=== PATIENT | female | born 1950 | race Caucasian/White ===

== ENCOUNTER 2019-09-12 13:10 | Emergency (ER) | payer BC, MEDICARE ==
[~2019-09-12] VITALS: Ht 162.6 cm; Wt 71.4 kg
[2019-09-12 13:12] VITALS: BP 139/76
[2019-09-12] MEDS ORDERED: RABIES VACCINE /PF 2.5 UNITS IM-VACC ONE (14:00)
[2019-09-12] MEDS ORDERED: CLINDAMYCIN PMX 600MG/50ML 50 ML IV ONE (14:00)
[2019-09-12] MEDS ORDERED: RABIES IMMUNE GLOBULIN/PF 150 UNITS/ML, 2ML IM ONE (14:00)
--- NOTE | 2019-09-12 14:00 | NUR ---
2 SUTURES REMOVED FROM LEFT THUMB W/OUT DIFFICULTY
[2019-09-12] MEDS ORDERED: KETOROLAC 30 MG/1 ML ONE (14:13)
[2019-09-12] MEDS ORDERED: CLINDAMYCIN PMX 600MG/50ML 50 ML ONE (14:14)
[2019-09-12 14:25] LABS: ALBUMIN 3.6 g/dL (3.4-5.0); ANION GAP 8 mmol/L (5-15); CALCIUM 8.6 mg/dL (8.5-10.1); CHLORIDE 107 mmol/L (98-107); CREATININE 0.63 mg/dL (0.55-1.02)
--- NOTE | 2019-09-12 14:30 | NUR ---
2 SYRINGES OF L.E.T GEL USED TOPICAL ANESTHETIC PRIOR TO IMMUNOGLOBULIN ADMIN
[2019-09-12 14:33] LABS: BASOPHILS # (AUTO) 0.01 x10^3/uL (0-0.1); BASOPHILS % (AUTO) 0 % (0-1); EOSINOPHILS # (AUTO) 0.15 x10^3/uL (0-0.4); EOSINOPHILS % (AUTO) 3 % (1-7); LYMPHOCYTES # (AUTO) 0.98 x10^3/uL (1-3.4); LYMPHOCYTES % (AUTO) 20 % (22-44); MD NO; MEAN CORPUSCULAR HEMOGLOBIN 33.8 pg (27.0-34.8); MEAN CORPUSCULAR HGB CONC 33.2 g/dL (32.4-35.8); MEAN CORPUSCULAR VOLUME 101.7 fL (80-100); MEAN PLATELET VOLUME 7.9 fL (7.4-10.4); MONOCYTES # (AUTO) 0.41 x10^3/uL (0.2-0.8); MONOCYTES % (AUTO) 8 % (2-9); NEUTROPHILS # (AUTO) 3.39 x10^3/uL (1.8-6.8); NEUTROPHILS % (AUTO) 69 % (42-75); PLATELET COUNT 283 x10^3/uL (130-400); RED BLOOD COUNT 3.92 x10^6/uL (3.82-5.3); RED CELL DISTRIBUTION WIDTH 14.3 % (9.6-15.2)
--- NOTE | 2019-09-12 14:36 | NUR ---
MEDICATED PER EMAR: TORODOL FOR LEFT THUMB PAIN & CLINDAMYCIN FOR INFECTION. AFTER CLARIFICATION WITH PROVIDER/PHARMACIST: VACCINE/IMMUNOGLOBULIN ADMINISTERED PER EMAR IN PREFERRED SITES PATIENT TOLERATED WELL
[2019-09-12] MEDS ORDERED: L.E.T SOLUTION TP ONE ×2 (14:44→17:00)
--- NOTE | 2019-09-12 15:00 | NUR ---
NO REACTION NOTED, REVIEWED WOUND CARE WELL PLAN FOR CONTINUED CARE FOR RABIES PREVENTION,. PATIENT/ TEACH BACK SUCCESSFUL
[2019-09-12 15:46] LABS: HCT (SEDRATE) 39.9 % (34.6-47.8)
== END 2019-09-12 15:43 | disposition home or self-care (01) ==
LOC: ED 15:37
DX: S61.052A Open bite of left thumb without damage to nail, initial encounter (principal); L03.012 Cellulitis of left finger
CPT/HCPCS: 36415; 80048; 82040; 85025; 85651; 86140; 90375; 90471; 90675; 96372; 96374; 99284

== ENCOUNTER 2019-09-14 12:19 | Inpatient (IN) | payer MEDICARE ==
[~2019-09-14] VITALS: Ht 162.6 cm; Wt 69.4 kg
[2019-09-14 12:57] LABS: BASOPHILS # (AUTO) 0.01 x10^3/uL (0-0.1); BASOPHILS % (AUTO) 0 % (0-1); EOSINOPHILS # (AUTO) 0.14 x10^3/uL (0-0.4); EOSINOPHILS % (AUTO) 3 % (1-7); LYMPHOCYTES % (AUTO) 19 % (22-44); MD NO; MEAN CORPUSCULAR HEMOGLOBIN 34.1 pg (27.0-34.8); MEAN CORPUSCULAR HGB CONC 33.2 g/dL (32.4-35.8); MEAN CORPUSCULAR VOLUME 102.6 fL (80-100); MEAN PLATELET VOLUME 7.2 fL (7.4-10.4); MONOCYTES % (AUTO) 8 % (2-9); NEUTROPHILS # (AUTO) 3.76 x10^3/uL (1.8-6.8); NEUTROPHILS % (AUTO) 71 % (42-75); PLATELET COUNT 296 x10^3/uL (130-400); RED BLOOD COUNT 3.97 x10^6/uL (3.82-5.3); RED CELL DISTRIBUTION WIDTH 14.2 % (9.6-15.2)
[2019-09-14] MEDS ORDERED: VANCOMYCIN PER PHARMACY MC ONE (13:00)
[2019-09-14] MEDS ORDERED: SODIUM CHLORIDE FLUSH 10ML SYR IVF ONE (13:00)
[2019-09-14] MEDS ORDERED: VANCOMYCIN 1,400 MG in SODIUM CHLORIDE 0.9% 250 ML IV ONE (13:00)
[2019-09-14 13:08] LABS: CHLORIDE 106 mmol/L (98-107)
[2019-09-14 13:16] LABS: ALANINE AMINOTRANSFERASE 29 U/L (12-78); ALBUMIN 3.7 g/dL (3.4-5.0); ALKALINE PHOSPHATASE 85 U/L (45-117); ANION GAP 6 mmol/L (5-15); BILIRUBIN,TOTAL 0.3 mg/dL (0.2-1.0); CREATININE 0.73 mg/dL (0.55-1.02); TOTAL PROTEIN 7.2 g/dL (6.4-8.2)
[2019-09-14] MEDS ORDERED: FERR-46 PO (13:18)
[2019-09-14] MEDS ORDERED: LEVO75TA5 PO (13:18)
[2019-09-14] MEDS ORDERED: DULO60CA7 PO (13:18)
[2019-09-14] MEDS ORDERED: CLIN300C8 PO (13:18)
--- NOTE | 2019-09-14 13:20 | NUR ---
Patient presents with wound after dog bite, states she had three stitches placed and removed, was taking doxycycline but changed to clindamycin when wound worsened. Patient has been taking clindamycin as prescribed but wound continues to swell with associated erythema and warmth. Laceration edges approximated without drainage at this time. Plan of care discussed with patient, questions answered, call rodriguez within reach. Waiting for vancomycin from pharmacy.
[2019-09-14] MEDS ORDERED: ONDANSETRON 2MG/ML, 2ML IVPush PRN (14:30)
[2019-09-14] MEDS ORDERED: morphine SULFATE 10 MG/ML, 1ML IVPush PRN (14:30)
[2019-09-14] MEDS ORDERED: KETOROLAC 30 MG/1 ML IV PRN ×2 (14:30→15:00)
[2019-09-14] MEDS ORDERED: PROMETHAZINE 25 MG/ML, 1ML IM PRN (14:30)
[2019-09-14] MEDS ORDERED: ONDANSETRON ODT 4 MG PO PRN (14:30)
[2019-09-14] MEDS ORDERED: hydrALAzine 20 MG/ML, 1ML IVPush PRN (14:30)
[2019-09-14] MEDS ORDERED: BACLOFEN 10 MG TABLET PO PRN (14:30)
[2019-09-14] MEDS ORDERED: ACETAMINOPHEN 325 MG TABLET PO PRN (14:30)
[2019-09-14] MEDS ORDERED: PHARMACY MAY ADJ FOR RENAL FX MC PRN (15:00)
[2019-09-14 15:10] VITALS: BP 130/90
[2019-09-14] MEDS: MEROPENEM 500 MG in SODIUM CHLORIDE 0.9% 100 ML IV SCH (15:24)
[2019-09-14 19:18] VITALS: BP 113/73
[2019-09-14] MEDS: IBUPROFEN 600 MG TABLET PO PRN (22:03)
[2019-09-15] MEDS: MEROPENEM 500 MG in SODIUM CHLORIDE 0.9% 100 ML IV SCH ×3 (00:21→16:22)
[2019-09-15 00:56] VITALS: BP 104/63
[2019-09-15 05:28] LABS: BASOPHILS # (AUTO) 0.05 x10^3/uL (0-0.1); BASOPHILS % (AUTO) 1 % (0-1); EOSINOPHILS # (AUTO) 0.16 x10^3/uL (0-0.4); EOSINOPHILS % (AUTO) 4 % (1-7); LYMPHOCYTES # (AUTO) 1.21 x10^3/uL (1-3.4); LYMPHOCYTES % (AUTO) 27 % (22-44); MD NO; MEAN CORPUSCULAR HGB CONC 33.1 g/dL (32.4-35.8); MEAN CORPUSCULAR VOLUME 102.5 fL (80-100); MEAN PLATELET VOLUME 7.2 fL (7.4-10.4); MONOCYTES # (AUTO) 0.43 x10^3/uL (0.2-0.8); MONOCYTES % (AUTO) 10 % (2-9); NEUTROPHILS # (AUTO) 2.69 x10^3/uL (1.8-6.8); NEUTROPHILS % (AUTO) 59 % (42-75); PLATELET COUNT 262 x10^3/uL (130-400); RED BLOOD COUNT 3.76 x10^6/uL (3.82-5.3); RED CELL DISTRIBUTION WIDTH 14.4 % (9.6-15.2)
[2019-09-15 05:36] LABS: ANION GAP 4 mmol/L (5-15); CALCIUM 8.6 mg/dL (8.5-10.1); CHLORIDE 108 mmol/L (98-107); CREATININE 0.66 mg/dL (0.55-1.02)
[2019-09-15] MEDS ORDERED: LEVOTHYROXINE 75 MCG TABLET PO SCH (06:00)
[2019-09-15 06:19] LABS: FREE T4 (FREE THYROXINE) 0.38 ng/dL (0.76-1.46)
[2019-09-15 07:15] VITALS: BP 112/72
[2019-09-15] MEDS: FERROUS SULFATE 325 MG TABLET PO SCH (09:08)
[2019-09-15] MEDS: DULOXETINE 30 MG CAPSULE.DR PO SCH (09:08)
[2019-09-15] MEDS: IBUPROFEN 600 MG TABLET PO PRN (09:08)
[2019-09-15] MEDS ORDERED: RABIES VACCINE /PF 2.5 UNITS IM-VACC SCH (09:30)
[2019-09-15] MEDS ORDERED: GADOTERATE 7.5 MMOL/15 ML SYR ONE (12:40)
[2019-09-15 13:58] VITALS: BP 114/69
[2019-09-15 15:19] LABS: HCT (SEDRATE) 38.8 % (34.6-47.8)
[2019-09-15 18:45] VITALS: BP 113/75
[2019-09-16] MEDS: MEROPENEM 500 MG in SODIUM CHLORIDE 0.9% 100 ML IV SCH ×3 (00:20→16:39)
[2019-09-16 00:39] VITALS: BP 107/67
[2019-09-16 06:05] VITALS: BP 118/74
[2019-09-16] MEDS: LEVOTHYROXINE 100 MCG TABLET PO SCH (06:07)
[2019-09-16 06:59] VITALS: BP 123/74
[2019-09-16 12:52] VITALS: BP 113/75
[2019-09-16] MEDS ORDERED: BUPIVACAINE/PF 0.5% ONE (14:38)
[2019-09-16] MEDS ORDERED: EPINEPHRINE 1 MG/ML, 1ML ONE (14:38)
[2019-09-16] MEDS ORDERED: FENTANYL PF 100 MCG/2ML ONE (14:41)
[2019-09-16] MEDS ORDERED: MIDAZOLAM 1 MG/ML, 2ML ONE (14:41)
[2019-09-16] MEDS ORDERED: KETOROLAC 30 MG/1 ML ONE (14:42)
[2019-09-16] MEDS ORDERED: ONDANSETRON 2MG/ML, 2ML ONE (14:42)
[2019-09-16] MEDS ORDERED: DEXAMETHASONE 4 MG/ML, 1ML ONE (14:43)
[2019-09-16] MEDS ORDERED: LACTATED RINGERS 1,000 ML IV SCH (14:46)
[2019-09-16] MEDS ORDERED: PROPOFOL 10 MG/ML, 20ML ONE (14:51)
[2019-09-16] MEDS ORDERED: FENTANYL PF 100 MCG/2ML IV PRN (15:00)
[2019-09-16] MEDS ORDERED: OXYcodone 5 MG/5 ML ORAL.SOL UDC PO PRN (15:00)
[2019-09-16] MEDS ORDERED: LABETALOL 5MG/ML, 20ML IV PRN (15:00)
[2019-09-16] MEDS ORDERED: ONDANSETRON 2MG/ML, 2ML IV PRN (15:00)
[2019-09-16] MEDS ORDERED: HYDROmorphone 2 MG/ML, 1ML IVPush PRN (15:00)
[2019-09-16] MEDS ORDERED: PROMETHAZINE 25 MG/ML, 1ML IV PRN (15:00)
[2019-09-16] MEDS ORDERED: MEPERIDINE/PF 25MG/ML,1ML IVPush PRN (15:00)
[2019-09-16] MEDS ORDERED: hydrALAzine 20 MG/ML, 1ML IV PRN (15:00)
[2019-09-16 16:15] VITALS: BP 134/81
[2019-09-16] MEDS: FERROUS SULFATE 325 MG TABLET PO SCH (16:39)
[2019-09-16] MEDS: DULOXETINE 30 MG CAPSULE.DR PO SCH (16:39)
[2019-09-16 19:26] VITALS: BP 133/67
[2019-09-17] MEDS: MEROPENEM 500 MG in SODIUM CHLORIDE 0.9% 100 ML IV SCH ×2 (00:05→07:54)
[2019-09-17 00:22] VITALS: BP 104/65
[2019-09-17 06:05] VITALS: BP 113/69
[2019-09-17] MEDS: LEVOTHYROXINE 100 MCG TABLET PO SCH (06:08)
[2019-09-17 06:37] VITALS: BP 96/62
[2019-09-17] MEDS: FERROUS SULFATE 325 MG TABLET PO SCH (07:54)
[2019-09-17] MEDS: DULOXETINE 30 MG CAPSULE.DR PO SCH (07:55)
[2019-09-17 12:23] VITALS: BP 115/78
[2019-09-17] MEDS: MEROPENEM 1 GM in SODIUM CHLORIDE 0.9% 100 ML IV SCH (16:06)
[2019-09-17 19:09] VITALS: BP 112/74
[2019-09-17] MEDS: IBUPROFEN 600 MG TABLET PO PRN (19:47)
[2019-09-18 01:59] VITALS: BP 118/76
[2019-09-18] MEDS: MEROPENEM 1 GM in SODIUM CHLORIDE 0.9% 100 ML IV SCH ×2 (02:57→15:32)
[2019-09-18] MEDS: LEVOTHYROXINE 100 MCG TABLET PO SCH (05:27)
[2019-09-18 05:49] LABS: BASOPHILS # (AUTO) 0.01 x10^3/uL (0-0.1); BASOPHILS % (AUTO) 0 % (0-1); EOSINOPHILS # (AUTO) 0.09 x10^3/uL (0-0.4); EOSINOPHILS % (AUTO) 2 % (1-7); LYMPHOCYTES % (AUTO) 30 % (22-44); MD NO; MEAN CORPUSCULAR HEMOGLOBIN 33.6 pg (27.0-34.8); MEAN CORPUSCULAR HGB CONC 32.6 g/dL (32.4-35.8); MEAN CORPUSCULAR VOLUME 103.3 fL (80-100); MEAN PLATELET VOLUME 7.3 fL (7.4-10.4); MONOCYTES # (AUTO) 0.44 x10^3/uL (0.2-0.8); MONOCYTES % (AUTO) 8 % (2-9); NEUTROPHILS # (AUTO) 3.21 x10^3/uL (1.8-6.8); NEUTROPHILS % (AUTO) 60 % (42-75); PLATELET COUNT 282 x10^3/uL (130-400); RED BLOOD COUNT 3.89 x10^6/uL (3.82-5.3)
[2019-09-18 06:11] LABS: ANION GAP 4 mmol/L (5-15); CALCIUM 8.3 mg/dL (8.5-10.1); CHLORIDE 111 mmol/L (98-107); CREATININE 0.52 mg/dL (0.55-1.02)
[2019-09-18 06:45] VITALS: BP 116/68
[2019-09-18] MEDS: FERROUS SULFATE 325 MG TABLET PO SCH (09:05)
[2019-09-18] MEDS: DULOXETINE 30 MG CAPSULE.DR PO SCH (09:05)
[2019-09-18 13:15] VITALS: BP 120/68
[2019-09-18 18:49] VITALS: BP 119/81
[2019-09-18] MEDS: IBUPROFEN 600 MG TABLET PO PRN (20:21)
[2019-09-19 01:16] VITALS: BP 117/73
[2019-09-19] MEDS: MEROPENEM 1 GM in SODIUM CHLORIDE 0.9% 100 ML IV SCH (03:04)
[2019-09-19] MEDS: LEVOTHYROXINE 100 MCG TABLET PO SCH (05:59)
[2019-09-19 07:28] VITALS: BP 129/83
[2019-09-19] MEDS: FERROUS SULFATE 325 MG TABLET PO SCH (09:16)
[2019-09-19] MEDS: DULOXETINE 30 MG CAPSULE.DR PO SCH (09:16)
[2019-09-19] MEDS ORDERED: RABIES VACCINE /PF 2.5 UNITS IM-VACC ONE (11:00)
[2019-09-19] MEDS: ERTAPENEM 1 GM in SODIUM CHLORIDE 0.9% 50 ML IV SCH ×2 (11:28→12:05)
[2019-09-19 14:55] VITALS: BP 135/85
[2019-09-19 20:03] VITALS: BP 118/70
[2019-09-20 02:00] VITALS: BP 131/81
[2019-09-20] MEDS: LEVOTHYROXINE 100 MCG TABLET PO SCH (05:34)
[2019-09-20] MEDS: FERROUS SULFATE 325 MG TABLET PO SCH (08:22)
[2019-09-20] MEDS: DULOXETINE 30 MG CAPSULE.DR PO SCH (08:22)
[2019-09-20 08:30] VITALS: BP 114/76
[2019-09-20] MEDS: ERTAPENEM 1 GM in SODIUM CHLORIDE 0.9% 50 ML IV SCH (10:31)
[2019-09-20 12:59] VITALS: BP 135/82
[2019-09-20 19:19] VITALS: BP 121/71
[2019-09-21 00:17] VITALS: BP 120/78
[2019-09-21] MEDS: LEVOTHYROXINE 100 MCG TABLET PO SCH (05:48)
[2019-09-21 06:41] VITALS: BP 116/74
[2019-09-21] MEDS: FERROUS SULFATE 325 MG TABLET PO SCH (08:24)
[2019-09-21] MEDS: DULOXETINE 30 MG CAPSULE.DR PO SCH (08:25)
[2019-09-21] MEDS ORDERED: ERTA1VIA IV (09:39)
[2019-09-21] MEDS: ERTAPENEM 1 GM in SODIUM CHLORIDE 0.9% 50 ML IV SCH (10:36)
[2019-09-21] MEDS ORDERED: LEVO100T PO (11:46)
[2019-09-21 13:23] VITALS: BP 116/81
== END 2019-09-21 16:25 | disposition home or self-care (01) | DRG 580 ==
LOC: ED 13:57 → EDIP 13:58 → ED 14:23 → 3N 14:53 → DCLOUNGE 09-21 16:16
PROVIDERS: ADMIT Hospitalist; ATTEND Internal Medicine
PROC: 0J9K0ZZ Drainage of Left Hand Subcutaneous Tissue and Fascia, Open Approach (ICD-10-PCS; principal; 2019-09-17)
PROC: 02HV33Z Insertion of Infusion Device into Superior Vena Cava, Percutaneous Approach (ICD-10-PCS; 2019-09-19)
PROC: B5181ZA Fluoroscopy of Superior Vena Cava using Low Osmolar Contrast, Guidance (ICD-10-PCS; 2019-09-19)
PROC: B548ZZA Ultrasonography of Superior Vena Cava, Guidance (ICD-10-PCS; 2019-09-19)
DX: L03.012 Cellulitis of left finger (principal); L02.512 Cutaneous abscess of left hand; M65.9 Synovitis and tenosynovitis, unspecified; M89.8X4 Other specified disorders of bone, hand; D50.9 Iron deficiency anemia, unspecified; D75.89 Other specified diseases of blood and blood-forming organs; E03.9 Hypothyroidism, unspecified; M79.7 Fibromyalgia; S61.052A Open bite of left thumb without damage to nail, initial encounter; W54.0XXA Bitten by dog, initial encounter; Y93.89 Activity, other specified; Y92.89 Other specified places as the place of occurrence of the external cause; Z88.8 Allergy status to other drugs, medicaments and biological substances; Z88.0 Allergy status to penicillin; Y99.8 Other external cause status; Z88.2 Allergy status to sulfonamides; Z88.1 Allergy status to other antibiotic agents
CPT/HCPCS: 36415; 36573; 80048; 80053; 82607; 84439; 84443; 85025; 85651; 86140; 87040; 87070; 87075; 87205; 90675; 96374; G0378; J0171; J1100; J1335; J1885; J2185; J2250; J2405; J2704; J3010; J3370; A9575; C1751; J7050; J7120